=== PATIENT | female | born 1995 ===

== ENCOUNTER 2019-05-07 05:00 | Day surgery (SDC) | payer OTHER ==
[~2019-05-07 05:00] MED LIST: METFORMIN HCL1000 M1 PO; SOLIQUA SUBCUTANEO
[2019-05-07] MEDS ORDERED: PERCOCET 5-3251 EACH PO (08:50)
== END 2019-05-07 11:50 | disposition home or self-care (01) ==
LOC: CIR.AMB 05:00
DX: C73 Malignant neoplasm of thyroid gland (principal)

== ENCOUNTER 2019-08-20 05:00 | Day surgery (SDC) | payer OTHER ==
[~2019-08-20] VITALS: Ht 167.6 cm; Wt 96.2 kg
[~2019-08-20 05:00] MED LIST changes: +GABAPENTIN800 MG PO; +PERCOCET 5-3251 EACH PO
[2019-08-20] MEDS ORDERED: PERCOCET 5-3251 EACH PO (09:13)
== END 2019-08-20 12:05 | disposition home or self-care (01) ==
LOC: CIR.AMB 05:00 → ADM 11:45 → CIR.AMB 12:05
DX: E06.3 Autoimmune thyroiditis (principal)